=== PATIENT | male | born 1930 | race Caucasian/White ===

== ENCOUNTER → 2016-11-21 | Outpatient (CLI) | payer MEDICARE, OTHER ==
[~2016-11-21] MED LIST: ACETAMINOPHEN PO; ACTOS PO; ASPIRIN PO; CARAFATE PO; CARDURA PO; CENTRUM SILVER PO; CLOPIDOGREL75 MG PO; DIOVAN HCT 80/11 TAB PO; GLUCOTROL XL PO; LIPITOR PO; MULTI-VITAMIN1 TAB PO; NEXIUM PO; PLAVIX300 MG; PRILOSEC PO; TESSALON200 MG PO; TOPROL XL PO; VICODIN 5/500 T1 TAB PO; VIT B 6 PO; VIT C PO; VYTORIN 10/20 T1 TAB PO; ZANTAC300 MG PO; ZITHROMAX PO; ZOCOR PO; [UNRECOGNIZED DRUG - REMARK]
--- NOTE | ~2016-11-21 | US128 ---
[id number] [address] [id number] [id number] O MR#: [id number] Acc #: [id number] NAME: BRAEDEN SCHERER : 1930 SEX: M STUDY DATE/TIME: 11/21/2016 8:59 UNIT: [facility] ROOM: STUDY DESCRIPTION: Thyroid Attending Physician: Isiah Campbell Jr., M.D. Referring Physician: Isiah Campbell Jr., M.D. Ordering Physician: Isiah Campbell Jr., M.D. Primary Care Physician: Isiah Campbell Jr., M.D. MEDICAL IMAGING REPORT This report is preliminary unless electronic signature is present. EXAM Thyroid ultrasound HISTORY Hyperthyroidism identified about 1 week ago. COMPARISON Images from older cervical spine MRIs dating back to July 2009. FINDINGS The gland is heterogeneous. There is a mildly homogeneously hyperechoic nodule at the left upper pole of the gland measuring here about 2 x 1.1 x 1.7 cm. This appears to correspond to a nodule in the left lobe of the thyroid gland seen on older MRI exams dating back to 2008, where it measured about 12 x 14 x 20 mm. No other substantial nodules are seen. IMPRESSION There is a solitary left lobe slightly hyperechoic nodule but, in all likelihood, this is the same nodule seen on MRI in July 2009 and grossly unchanged since that time. Given patient age and reasonable suspicion of chronic stability, no follow up or surveillance ultrasound should be considered. While tissue sampling is technically feasible, the stability and age of the patient suggest that it may not be necessary. Dictated by... Pancho Ling M.D. THIS IS AN ELECTRONICALLY VERIFIED REPORT Pancho Ling M.D. at 11/25/2016 5:05 PM TEV/psc TD: 11/21/2016 22:09 JOB #: [id number] MEDICAL IMAGING REPORT Page 1 of 1
== END | disposition home or self-care (01) ==
LOC: SGUS 08:43
DX: E05.90 Thyrotoxicosis, unspecified without thyrotoxic crisis or storm (principal); E04.1 Nontoxic single thyroid nodule
CPT/HCPCS: 76536